=== PATIENT | male | born 1990 | race Caucasian/White ===

== ENCOUNTER 2021-06-23 01:18 | Emergency (ER) | payer BC ==
[2021-06-23] MEDS ORDERED: traMADol 50 MG Tab PO ONE (01:55)
[2021-06-23] MEDS ORDERED: Cephalexin 500 MG Cap PO ONE (01:55)
--- NOTE | 2021-06-23 01:57 | EDM.PDOC ---
ED HPI GENERAL MEDICAL PROBLEM - General Chief Complaint: ENT Problem Stated Complaint: ABCESSED TOOTH Time Seen by Provider: 06/23/21 01:51 - History of Present Illness INITIAL COMMENTS - FREE TEXT/NARRATIVE: 31 HISTORY AND PHYSICAL: History of present illness: 31-year-old gentleman who presents ER today secondary to dental pain. Patient reports pain times several days. Patient has any recent fevers, shakes, chills, nausea, vomiting, diarrhea. Review of systems: As per history of present illness and below otherwise all systems reviewed and negative. Past medical history: As per history of present illness and as reviewed below otherwise noncontributory. Surgical history: As per history of present illness and as reviewed below otherwise noncontributory. Social history: No reported history of drug abuse. Family history: As per history of present illness and as reviewed below otherwise noncontributory. Physical exam: This patient was seen and evaluated during the 2019 SARS-CoV-2 novel coronavirus pandemic period. Community viral transmission is ongoing at time of this encounter and the emergency department is operating under pandemic response procedures. Constitutional: Patient is oriented to person, place, and time. Appears well- developed and well-nourished. No distress. HEENT: Moist mucous membranes Head: Normocephalic and atraumatic Eyes: Right eye exhibits no discharge. Left eye exhibits no discharge. No scleral icterus Neck: Normal range of motion. No tracheal deviation present. Cardiovascular: Normal rate and regular rhythm. Pulmonary: Effort normal, no respiratory distress. Abdominal: No distention Musculoskeletal: Normal range of motion Neurologic: Alert and oriented to person, place and time. Skin: [place], warm and dry. Psychiatric: Normal mood and affect. Behavior is normal. Judgment and thought content normal. Nursing note and vital signs have been reviewed Patient's ER physical exam is significant for tenderness to palpation to his left lower premolars with some swelling around his gumline. Diagnostics: [] Therapeutics: [] Assessment and plan: 31-year-old who presents ER today secondary to a dental abscess/pain. Patient was started on extract ibuprofen and Keflex. Patient given a dose of Ultram here in the ED for tonight. Reassessment at the time of disposition demonstrates that the patient is in no acute distress. The patient has remained stable throughout the entire ED visit and is without objective evidence for acute process requiring urgent intervention or hospitalization. The patient is stable for discharge, counseling is provided as documented above, discussed symptomatic treatment and specific conditions for return. I have spoken with the patient/caregiver and discussed todays findings, in addition to providing specific details for the plan of care. Questions are answered and there is agreement with the plan. Definitive disposition and diagnosis as appropriate pending reevaluation and review of above. Left Lower Tooth/Teeth Pain Score (Numeric/FACES): 10 - Related Data Allergies Allergy/AdvReac Type Severity Reaction Status Date / Time No Known Allergies Allergy Verified 06/23/21 01:26 Home Meds: Home Meds . [No Known Home Meds] 06/23/21 [History] Past Medical History Respiratory History: Reports: Asthma - Infectious Disease History Infectious Disease History: Reports: None Social & Family History - Family History Family Medical History: No Pertinent Family History - Tobacco Use Tobacco Use Status *Q: Never Tobacco User - Recreational Drug Use Recreational Drug Use: No ED ROS GENERAL - Review of Systems Review Of Systems: See Below ED EXAM, GENERAL - Physical Exam Exam: See Below Course - Vital Signs Last Recorded V/S: Last Vital Signs Temp 97.1 F 06/23/21 01:23 Pulse 58 L 06/23/21 01:23 Resp 16 06/23/21 01:23 BP 137/83 06/23/21 01:23 Pulse Ox 99 06/23/21 01:23 - Orders/Labs/Meds Orders: Active Orders 24 hr Category Date Time Status cephALEXin [Keflex] Med 06/23/21 01:55 Once 500 mg PO ONETIME ONE traMADol [Ultram] Med 06/23/21 01:55 Once 50 mg PO ONETIME ONE Departure - Departure Time of Disposition: 01:56 Disposition: Home, Self-Care 01 Condition: Good Clinical Impression: Dental abscess - Discharge Information Instructions: Dental Abscess, [id number] Referrals: PCP,None [Primary Care Provider] - Additional Instructions: You were seen and evaluated in ER today secondary to pain to your tooth which is most likely secondary to a dental infection. You will be given a dose of Ultram and Keflex here in the ED and you will be given a prescription for Keflex and ibuprofen to take in addition to the acetaminophen that you have been taking. Please make an appointment see your dentist as it is possible so they can do definitive management of the tooth ache. The following information is given to patients seen in the emergency department who are being discharged to home. This information is to outline your options for follow-up care. We provide all patients seen in our emergency department with a follow-up referral. The need for follow-up, as well as the timing and circumstances, are variable depending upon the specifics of your emergency department visit. If you don't have a primary care physician on staff, we will provide you with a referral. We always advise you to contact your personal physician following an emergency department visit to inform them of the circumstance of the visit and for follow-up with them and/or the need for any referrals to a consulting specialist. The emergency department will also refer you to a specialist when appropriate. This referral assures that you have the opportunity for follow-up care with a specialist. All of these measure are taken in an effort to provide you with optimal care, which includes your follow-up. Under all circumstances we always encourage you to contact your private physician who remains a resource for coordinating your care. When calling for follow-up care, please make the office aware that this follow-up is from your recent emergency room visit. If for any reason you are refused follow-up, please contact the [facility] Emergency Department at and asked to speak to the emergency department charge nurse. [facility] [address] [place] [id number] [address] Sepsis Event Note (ED) - Evaluation Sepsis Screening Result: No Definite Risk - Focused Exam Vital Signs: Vital Signs Temp Pulse Resp BP Pulse Ox 06/23/21 01:23 97.1 F 58 L 16 137/83 99 - My Orders Last 24 Hours: My Active Orders 06/23/21 01:55 cephALEXin [Keflex] 500 mg PO ONETIME ONE traMADol [Ultram] 50 mg PO ONETIME ONE - Assessment/Plan Last 24 Hours: My Active Orders 06/23/21 01:55 cephALEXin [Keflex] 500 mg PO ONETIME ONE traMADol [Ultram] 50 mg PO ONETIME ONE
== END 2021-06-23 02:14 | disposition home or self-care (01) ==
LOC: MW.ED 01:18
DX: K04.7 Periapical abscess without sinus (principal); J45.909 Unspecified asthma, uncomplicated
CPT/HCPCS: 99282; A9270

== ENCOUNTER 2022-05-05 19:04 | Emergency (ER) | payer BC | END 2022-05-05 21:15 | disposition left against medical advice (07) | LOC: MW.ED 19:04 | DX: Z53.21 Procedure and treatment not carried out due to patient leaving prior to being seen by health care provider (principal) ==

== ENCOUNTER 2023-02-15 23:46 | Emergency (ER) | payer BC ==
[2023-02-16] MEDS ORDERED: Albuterol/Ipratropium 3.0-0.5 MG/3 ML Neb Soln NEB ONE (00:10)
[2023-02-16] MEDS ORDERED: predniSONE 10 MG Tab PO ONE (00:10)
== END 2023-02-16 00:50 | disposition home or self-care (01) ==
LOC: MW.ED 23:46
DX: J45.901 Unspecified asthma with (acute) exacerbation (principal)
CPT/HCPCS: 71046; 99283; A9270; J7620-GY